=== PATIENT | female | born 1955 | race Caucasian/White ===

== ENCOUNTER → 2020-08-10 | Outpatient (CLI) | payer BC ==
[~2020-08-10] MED LIST: ALDACTONE 25MG25 M1 PO; ASPIRIN E.C. 8181 MG PO; COUMADIN 1010 MG/TAB PO; FOSAMAX 70MG TA70 MG PO; SYNTHROID0.112 MG/T PO
== END ==
LOC: MC.RAD 09:00
DX: Z12.31 Encounter for screening mammogram for malignant neoplasm of breast (principal); Z00.00 Encounter for general adult medical examination without abnormal findings

== ENCOUNTER 2020-10-05 07:56 | Outpatient (CLI) | payer BC ==
[~2020-10-05] VITALS: Ht 162.7 cm; Wt 54.9 kg
[2020-10-05] MEDS ORDERED: COUMADIN 1010 MG/TAB PO (08:19)
[2020-10-05] MEDS ORDERED: ASPIRIN E.C. 8181 MG PO (08:19)
[2020-10-05] MEDS ORDERED: SYNTHROID0.112 MG/T PO (08:20)
[2020-10-05] MEDS ORDERED: ALDACTONE 25MG25 M1 PO (08:22)
[2020-10-05] MEDS ORDERED: FOSAMAX 70MG TA70 MG PO (08:24)
[2020-10-05 08:47] VITALS: BP 100/63; PULSE 49; TEMP 98
[2020-10-05 08:50] LABS: HEMATOCRIT 36.9 % (37.0-47.0); HEMOGLOBIN 12.5 g/dl (12.5-16.0); MEAN CELL VOLUME 89 fl (80.0-100.0); MEAN CORPUSCULAR HEMOGLOBIN 30 pg (27.0-31.0); MEAN CORPUSCULAR HGB CONC 34 g/dl (33.0-37.0); MEAN PLATELET VOLUME 10.9 fl (7.4-10.4); PLATELET COUNT 221 K/mm3 (130-400); RED BLOOD COUNT 4.15 M/mm3 (4.10-5.30); REDCELL DISTRIBUTION WIDTH-CV 14.2 % (11.5-14.5)
[2020-10-05 08:54] LABS: INR 2.3 (0.8-3.0); PROTHROMBIN TIME 25.5 SECONDS (9.7-12.8)
[2020-10-05 09:07] LABS: CALCIUM 9.4 mg/dL (8.4-10.2); CREATININE, serum 0.76 (0.52-1.25); POTASSIUM 4.4 mmol/L (3.4-5.0)
[2020-10-05 10:00] VITALS: BP 92/55; PULSE 51; TEMP 98
--- NOTE | 2020-10-05 10:00 | NUR ---
Report from Fawn FRANCIS. Alert and oriented, denies pain and needs at this time. VSS.
[2020-10-05 10:15] VITALS: BP 108/63; PULSE 46; TEMP 98
[2020-10-05 10:30] VITALS: BP 108/67; PULSE 50; TEMP 98
[2020-10-05 10:45] VITALS: BP 104/59; PULSE 50; TEMP 98
[2020-10-05 11:09] VITALS: BP 109/61; PULSE 52; TEMP 98
--- NOTE | 2020-10-05 11:09 | NUR ---
INT discontinued intact. Discharge instructions given. Transferred to private car by cosmo
== END 2020-10-05 11:15 | disposition home or self-care (01) ==
LOC: COL.RAD 07:56 → EUO 07:56 → COL.RAD 08:00 → EUO 11:15
PROVIDERS: Internal Medicine Cardiovascular Disease
DX: I51.7 Cardiomegaly (principal); I35.9 Nonrheumatic aortic valve disorder, unspecified; Z95.2 Presence of prosthetic heart valve
CPT/HCPCS: J2704

== ENCOUNTER → 2021-10-06 | Outpatient (CLI) | payer BC | LOC: MC.RAD 10:48 | DX: Z12.31 Encounter for screening mammogram for malignant neoplasm of breast (principal) ==

== ENCOUNTER 2022-01-03 09:52 | Outpatient (CLI) | payer BC ==
[~2022-01-03] VITALS: Ht 162.7 cm; Wt 56.2 kg
[~2022-01-03 09:52] MED LIST changes: -SYNTHROID0.112 MG/T PO; +SYNTHROID0.125 MG/T PO
[2022-01-03] MEDS ORDERED: COUMADIN 1010 MG/TAB PO (10:25)
[2022-01-03 10:29] VITALS: BP 105/60; PULSE 53; TEMP 97.9
== END 2022-01-03 18:19 | disposition home or self-care (01) ==
LOC: EUO 09:52
DX: M81.0 Age-related osteoporosis without current pathological fracture (principal)
CPT/HCPCS: J0897

== ENCOUNTER 2022-07-31 10:05 | Outpatient (CLI) | payer BC ==
[2022-07-31 10:25] VITALS: BP 116/73; PULSE 59; TEMP 97.6
== END 2022-07-31 10:34 | disposition home or self-care (01) ==
LOC: EUO 10:05
DX: M81.0 Age-related osteoporosis without current pathological fracture (principal)
CPT/HCPCS: J0897